=== PATIENT | male | born 1970 | race Caucasian/White ===

== ENCOUNTER 2024-10-13 06:26 | Day surgery (SDC) | payer OTHER, SELFPAY | END 2024-10-13 13:40 | disposition home or self-care (01) | LOC: GI 06:26 | PROVIDERS: ATTENDING PHYSICIAN Student in an Organized Health Care Education/Training Program | DX: Z12.11 Encounter for screening for malignant neoplasm of colon (principal); K57.30 Diverticulosis of large intestine without perforation or abscess without bleeding; K64.0 First degree hemorrhoids; D17.5 Benign lipomatous neoplasm of intra-abdominal organs | CPT/HCPCS: 45380; 88305 ==